=== PATIENT | male | born 2000 | race Caucasian/White ===

== ENCOUNTER 2022-02-24 00:09 | Emergency (ER) | payer OTHER ==
[~2022-02-24] VITALS: Ht 185.4 cm; Wt 74.8 kg
[2022-02-24] MEDS ORDERED: OXYCODONE/APAP 5-325 MG TABLET ONE (00:40)
[2022-02-24] MEDS ORDERED: BACI28.33 TP (00:42)
[2022-02-24] MEDS ORDERED: OXYCODONE/APAP 5-325 MG TABLET PO ONE (00:45)
[2022-02-24 01:26] LABS: HEMATOCRIT 43.6 % (36.7-47.1); MEAN CORPUSCULAR HEMOGLOBIN 31.7 uug (23.8-33.4); MEAN CORPUSCULAR VOLUME 88.7 fL (73.0-96.2); PLATELET COUNT (AUTO) 351 K/uL (152-348)
[2022-02-24 01:34] LABS: CREATININE 1.2 mg/dL (0.6-1.3)
[2022-02-24 01:40] LABS: BILIRUBIN,TOTAL 0.3 mg/dL (0.2-1.0); TOTAL PROTEIN, SERUM 7.4 g/dL (6.4-8.2)
[2022-02-24] MEDS ORDERED: levETIRAcetam 250 MG TABLET PO ONE (02:00)
[2022-02-24] MEDS ORDERED: TDAP DIPH,PERTUSS,TET VAC/PF 0.5 ML DISP.SYRIN IM ONE ×2 (02:00→02:22)
[2022-02-24] MEDS ORDERED: levETIRAcetam 250 MG TABLET ONE (02:22)
--- NOTE | 2022-02-24 02:36 | NUR ---
[facility] from [facility] called back with transfer info. Patient will be going to room , accepting MD is Myra Marquez. [facility] is unable to set up transportation due to insurance issue.
--- NOTE | 2022-02-24 03:10 | NUR ---
Called [facility] ambulance for transport with ALS ambulance. ETA is [id number].
--- NOTE | 2022-02-24 03:11 | NUR ---
Called [facility] ambulance for ALS transport but had no available unit 1500 later today. Also called [facility], [facility], [facility] and [facility] who all had no ALS available.
--- NOTE | 2022-02-24 07:07 | NUR ---
SBAR to incoming RN
--- NOTE | 2022-02-24 08:15 | NUR ---
0815 patient picked up by transport, pt in stable condition. report given to virtual assistant for [employer], pt sent with belongings, imaging CT CD and summary report.
== END 2022-02-24 08:18 | disposition short-term general hospital (02) ==
LOC: ER 00:18
DX: S06.4X9A Epidural hemorrhage with loss of consciousness of unspecified duration, initial encounter (principal); S16.1XXA Strain of muscle, fascia and tendon at neck level, initial encounter; S00.81XA Abrasion of other part of head, initial encounter; R40.2362 Coma scale, best motor response, obeys commands, at arrival to emergency department; R40.2142 Coma scale, eyes open, spontaneous, at arrival to emergency department; R40.2252 Coma scale, best verbal response, oriented, at arrival to emergency department; V03.90XA Pedestrian on foot injured in collision with car, pick-up truck or van, unspecified whether traffic or nontraffic accident, initial encounter; Y92.89 Other specified places as the place of occurrence of the external cause; F17.210 Nicotine dependence, cigarettes, uncomplicated; Z86.59 Personal history of other mental and behavioral disorders; Z20.822 Contact with and (suspected) exposure to COVID-19
CPT/HCPCS: 36415; 70450; 72125; 85025; 85610; 90715; A4663